=== PATIENT | male | born 1955 | race Caucasian/White ===

== ENCOUNTER 2018-10-23 04:06 | Emergency (ER) | payer OTHER, SELFPAY ==
[2018-10-23 04:10] VITALS: BP 141/86; PULSE 91; RESP 19; O2SAT 97; BMI 39.9
--- NOTE | 2018-10-23 04:19 | ED_ITS ---
HPI - General Adult General Chief complaint: GI Bleed Stated complaint: Rectal bleeding Time Seen by Provider: 10/23/18 04:12 Source: patient Mode of arrival: ambulatory Limitations: no limitations History of Present Illness HPI narrative: 63-year-old male here for evaluation of rectal bleeding. He stated that last night he went to change his underwear noticed a fairly large area bright red blood in the underwear. He had no pain associated with it. He had a bowel movement at approximately 0600 hours last evening without any discomfort without any blood. Had a colonoscopy 2 weeks ago and was diagnosed with a internal hemorrhoid and did have some polyps taken which he states were noncancerous. States that he woke up this morning and again had blood on his underwear. Review of Systems Constitutional Denies headache(s) ENT Ears, Nose, Mouth, and Throat: Denies headache(s) Cardiovascular Denies chest pain and Denies dyspnea Respiratory Denies dyspnea Gastrointestinal Gastrointestinal: Denies abdominal pain, Denies nausea and Denies vomiting Comments: Bright red blood in his underwear Genitourinary Denies dysuria Integumentary/Breasts Denies rash Neurologic Denies headache(s) Hematologic/Lymphatic Denies easy bleeding and Denies easy bruising [facility] Medical History Hypertension (Acute) Social History Smoking Status: Never smoker Social History Smoking Status: Never smoker Exam Initial Vital Signs Initial Vital Signs: Vital Signs Pulse Rate 91 H 10/23/18 04:10 Respiratory Rate 19 10/23/18 04:10 Blood Pressure 141/86 H 10/23/18 04:10 Pulse Oximetry 97 10/23/18 04:10 Const General: cooperative, comfortable, well developed, well groomed and No acute distress Orientation: alert, awake and oriented x3 HENMT Head: normal to inspection and normocephalic Resp Effort & Inspection: normal respiratory effort Cardio Rate: regular rate GI Other: One thrombosed external hemorrhoid that is bleeding Skin Lesions: no lesions Rashes: no rashes Neuro General: alert, awake and oriented x3 Cognition: normal cognition Speech: speech normal Extrem General: normal to inspection and capillary refill normal Psych Appearance: grossly normal and well kempt Course Vital Signs - 8 hr 10/23/18 04:10 Pulse Rate 91 H Respiratory Rate 19 Blood Pressure 141/86 H Pulse Oximetry 97 Medical Decision Making MDM Narrative Medical decision making narrative: Patient with 1 external thrombosed hemorrhoid. I suspect that this is the cause of his symptoms. He was recently had a colonoscopy. It was bright red blood. We did discuss hemorrhoids and treatment for this. We discussed return precautions and follow-up instructions. He expressed understanding and agreement with plan. Discharge Plan Departure Patient Disposition: Home Clinical Impression: Hemorrhoids Qualifiers: Hemorrhoid type: unspecified Qualified Code(s): K64.9 - Unspecified hemorrhoids Instructions: DI for Hemorrhoid Banding Activity Restrictions/Additional Instructions: You can expect some more bleeding over the next couple days. Like we discussed the need to have soft regular bowel movements. Contact your primary doctor for follow-up. Return to the emergency department for any new or worsening symptoms.
[2018-10-23 04:35] VITALS: TEMP 36.8
== END 2018-10-23 04:56 | disposition home or self-care (01) ==
PROVIDERS: Emergency Provider Emergency Medicine
DX: K64.9 Unspecified hemorrhoids (principal)
CPT/HCPCS: 99282

== ENCOUNTER 2019-08-05 13:33 | Emergency (ER) | payer OTHER, SELFPAY ==
[2019-08-05 14:17] VITALS: BP 148/72; PULSE 88; RESP 14; TEMP 36.3; O2SAT 98
--- NOTE | 2019-08-05 15:28 | DI.RAD.S_ITS ---
PROCEDURE: XR LUMBAR SPINE 2-3V INDICATIONS: low back pain TECHNIQUE: 3 views of the lumbar spine were acquired. COMPARISON: None. FINDINGS: Bones: There are 5 lumbar-type vertebral bodies. The lowest intervertebral disk space is designated as L5-S1. The vertebral body heights are well-maintained without evidence to suggest an acute compression fracture. The bone mineralization is within normal limits. Mild degenerative changes of the lower lumbar spine are predominantly evident involving the lower lumbar facet joints present intervertebral disc heights are relatively well-maintained. [id number] degenerative changes of the hips appear to be present (right greater than left), not adequately characterized. Soft tissues: The soft tissues of the imaged abdomen and pelvis are within normal limits. IMPRESSION: Mild degenerative changes of the lower lumbar spine. No acute fractures. Dictated by: Phillip Nobles M.D. on 08/05/2019 at 14:43 Approved by: Phillip Nobles M.D. on 08/05/2019 at 14:45
[2019-08-05] MEDS: CYCLOBENZAPRINE 10 MG TABLET PO (16:26)
[2019-08-05] MEDS: KETOROLAC 60 MG/2 ML VIAL 30 MG IM (16:26)
[2019-08-05] MEDS: LIDOCAINE PATCH 1 EACH ADH..PATCH TOP (16:27)
[2019-08-05 16:58] VITALS: BP 117/85; PULSE 85; RESP 14; O2SAT 96
--- NOTE | 2019-08-05 17:31 | ED.BACK ---
HPI - Back Pain/Injury <FARHAD Fagan - Last Filed: 08/05/19 17:34> General Chief Complaint: Back Pain/Injury Stated Complaint: Stiff Back Time Seen by Provider: 08/05/19 14:58 Source: patient and family Mode of arrival: Ambulatory Limitations: no limitations History of Present Illness HPI Narrative: The patient is a 64-year-old male nonsmoker with history of hypertension who presents with his for chief complaint of a stiff back. He states he started having some lumbar pain on getting dressed this morning. Then it radiated to the left side. He denies any incontinence of bowel, incontinence of bladder saddle anesthesia, numbness tingling or weakness. He has taken aspirin for the pain. He denies any previous injuries of anything similar. He denies any falls or trauma. Denies any fever or personal history of cancer Related Data Previous Rx's Medication Instructions Recorded cyclobenzaprine 10 mg PO TID PRN #20 tab 08/05/19 ketorolac 10 mg PO TID PRN #15 tab 08/05/19 lidocaine 1 patch TOP DAILY PRN #15 each 08/05/19 Allergies Allergy/AdvReac Type Severity Reaction Status Date / Time No Known Drug Allergies Allergy Verified 08/05/19 16:25 Review of Systems <FARHAD Fagan - Last Filed: 08/05/19 17:34> Review of Systems Narrative: GENERAL: Denies chills, fatigue, malaise, fever, sweats. HEENT: Denies sinus pain, ear pain, sore throat, difficulty swallowing, dizziness. RESPIRATORY: Denies dyspnea, cough, wheezing, hemoptysis, sputum. CARDIOVASCULAR: Denies chest pain, palpitations, orthopnea, edema, GASTROINTESTINAL: Denies nausea, vomiting, abdominal pain, diarrhea, constipation, melena. : Denies dysuria, frequency, incontinence, hematuria, urinary retention. MUSCULOSKELETAL: See HPI SKIN: Denies rash, skin lesions, or other NEUROLOGIC: Denies weakness, headache, numbness, change in speech, confusion, seizures, incoordination. PSYCHIATRIC: No concerning psychosocial issues. 12 point review of systems is negative except for those stated above Patient History <FARHAD Fagan - Last Filed: 08/05/19 17:34> Social History Smoking Status: Never smoker Smoking Status: Never smoker alcohol intake frequency: 0-2 drinks per day Substance Use Type: does not use Exam <Ginette WILLIE Love-BC - Last Filed: 08/05/19 17:34> Narrative Exam Narrative: GENERAL: This is a well-nourished, well-developed patient, in no acute distress HEAD: Atraumatic. Normocephalic. No temporal or scalp tenderness. EYES: Pupils equal round and reactive. Extraocular motions intact. No scleral icterus. No injection or drainage. ENT: Nose without bleeding, purulent drainage or septal hematoma. Throat without erythema, tonsillar hypertrophy or exudate. Uvula midline. Airway patent. NECK: Trachea midline. No JVD or lymphadenopathy. Supple, nontender, no meningeal signs. CARDIOVASCULAR: Regular rate and rhythm without murmurs, gallops, or rubs. RESPIRATORY: Clear to auscultation. Breath sounds equal bilaterally. No wheezes, rales, or rhonchi. GASTROINTESTINAL: Abdomen soft, non-tender, nondistended. No hepato-splenomegaly, or palpable masses. No guarding. EXTREMITIES: No clubbing, cyanosis, or edema. No joint tenderness, effusion, or edema noted. BACK: No pain to cervical or thoracic palpation without deformity or crepitance. No flank tenderness. Pain to lumbar spine palpation. Pain to left-sided paraspinal muscle lumbar area. NEURO: AOx3. Stable gait. No gross cranial nerve deficit. Clear speech. Strength is equal upper and lower extremities bilaterally SKIN: No rash or erythema on visible skin Initial Vital Signs Initial Vital Signs: Vital Signs Temperature 97.4 F L 08/05/19 14:17 Pulse Rate 88 08/05/19 14:17 Respiratory Rate 14 08/05/19 14:17 Blood Pressure 148/72 H 08/05/19 14:17 Pulse Oximetry 98 08/05/19 14:17 <Keyanna Umana DO - Last Filed: 08/06/19 08:02> Initial Vital Signs Initial Vital Signs: Vital Signs Temperature 97.4 F L 08/05/19 14:17 Pulse Rate 88 08/05/19 14:17 Respiratory Rate 14 08/05/19 14:17 Blood Pressure 148/72 H 08/05/19 14:17 Pulse Oximetry 98 08/05/19 14:17 Course <JEAN PAUL Fagan - Last Filed: 08/05/19 17:34> Orders Ordered: Discontinued Medications Cyclobenzaprine HCl (Flexeril) 10 mg PO NOW ONE Stop: 08/05/19 15:29 Last Admin: 08/05/19 16:26 Dose: 10 mg Documented by: BRIANNE Ketorolac Tromethamine (Toradol) 30 mg IM NOW ONE Stop: 08/05/19 15:29 Last Admin: 08/05/19 16:26 Dose: 30 mg Documented by: BRIANNE Lidocaine (Lidoderm) 1 each TOP NOW ONE Stop: 08/05/19 15:29 Last Admin: 08/05/19 16:27 Dose: 1 each Documented by: BRIANNE Vital Signs Vital signs: Vital Signs - 8 hr 08/05/19 14:17 08/05/19 16:58 Temperature 97.4 F L Pulse Rate 88 85 Respiratory Rate 14 14 Blood Pressure 148/72 H Blood Pressure [Left Arm] 117/85 Pulse Oximetry 98 96 <Keyanna Umana DO - Last Filed: 08/06/19 08:02> Orders Ordered: Discontinued Medications Cyclobenzaprine HCl (Flexeril) 10 mg PO NOW ONE Stop: 08/05/19 15:29 Last Admin: 08/05/19 16:26 Dose: 10 mg Documented by: BRIANNE Ketorolac Tromethamine (Toradol) 30 mg IM NOW ONE Stop: 08/05/19 15:29 Last Admin: 08/05/19 16:26 Dose: 30 mg Documented by: BRIANNE Lidocaine (Lidoderm) 1 each TOP NOW ONE Stop: 08/05/19 15:29 Last Admin: 08/05/19 16:27 Dose: 1 each Documented by: BRIANNE Vital Signs Vital signs: Vital Signs - 8 hr 08/05/19 14:17 08/05/19 16:58 Temperature 97.4 F L Pulse Rate 88 85 Respiratory Rate 14 14 Blood Pressure 148/72 H Blood Pressure [Left Arm] 117/85 Pulse Oximetry 98 96 MDM - Back Pain/Injury <JEAN PAUL Fagan - Last Filed: 08/05/19 17:34> Imaging Data Lumbar x-ray: Radiologist's Impression: [address] [place] [id number] XRay Report Signed Patient: Nishant Castro MMR#: [id number] : 7Acct:[id number] Age/Sex: 64 / MDate of Service: 08/05/19 Loc: ED Accession Number: [id number] Procedure: XR lumbar spine 2-3V Ordering Provider: Ginette LoveP-RADHA PROCEDURE: XR LUMBAR SPINE 2-3V INDICATIONS: low back pain TECHNIQUE: 3 views of the lumbar spine were acquired. COMPARISON: None. FINDINGS: Bones: There are 5 lumbar-type vertebral bodies. The lowest intervertebral disk space is designated as L5-S1. The vertebral body heights are well-maintained without evidence to suggest an acute compression fracture. The bone mineralization is within normal limits. Mild degenerative changes of the lower lumbar spine are predominantly evident involving the lower lumbar facet joints present intervertebral disc heights are relatively well-maintained. [id number] degenerative changes of the hips appear to be present (right greater than left), not adequately characterized. Soft tissues: The soft tissues of the imaged abdomen and pelvis are within normal limits. IMPRESSION: Mild degenerative changes of the lower lumbar spine. No acute fractures. Dictated by: Phillip Nobles M.D. on 08/05/2019 at 14:43 Approved by: Phillip Nobles M.D. on 08/05/2019 at 14:45 MDM Narrative Medical decision making narrative: The patient is a 64-year-old male who presents with a chief complaint of lumbar pain after getting dressed today. He feels much better with the above-stated therapies. X-ray shows no acute findings. Patient does not have any red flag symptoms of incontinence bowel, incontinence of bladder saddle anesthesia and states understanding that these are return precautions. Encourage PCP follow-up in the next few days. Discussed at length coming back to ER for acute concerns. Patient have no questions or concerns upon discharge and state understanding of return precautions as well as follow-up care. Discharge Plan Departure Patient Disposition: Home Clinical Impression: Strain of lumbar region Qualifiers: Encounter type: initial encounter Qualified Code(s): S39.012A - Strain of muscle, fascia and tendon of lower back, initial encounter Acute back pain Qualifiers: Back pain location: low back pain Back pain laterality: left Sciatica presence: without sciatica Qualified Code(s): M54.5 - Low back pain Discharge Date/Time: 08/05/19 17:03 Instructions: DI for Low Back Pain, DI for Back Spasm, DI for Back Strain or Sprain Activity Restrictions/Additional Instructions: I have sent [address] [facility] Please follow-up with primary care provider in the next few days. Your x-rays here show no acute findings. As I discussed, your x-ray shows no acute fracture. This does not rule out a soft tissue injury such as a ligament or tendon injury. It is important that you follow up with primary care provider, especially if worsening or no improvement. There can be fractures that did not show up on initial x-ray. Please be aware that the cyclobenzaprine can be sedating. Do not take and drive. Do not combine with any other sedating agents. I have given you a prescription of Toradol. This is an NSAID. Do not combine it with other NSAIDs such as Aleve or ibuprofen. I suggest taking it with some food, as it can irritate your stomach. Please come back to the emergency department for any acute concerns such as incontinence bowel incontinence of bladder or numbness in your groin Prescriptions: New ketorolac 10 mg tablet 10 mg PO TID PRN (Reason: pain) Qty: 15 RF: 0 lidocaine 5 % adhesive patch,medicated 1 patch TOP DAILY PRN (Reason: pain) Qty: 15 RF: 0 cyclobenzaprine 10 mg tablet 10 mg PO TID PRN (Reason: muscle spasm) Qty: 20 RF: 0 Referrals: Mari Gong ARNP [Primary Care Provider] -
== END 2019-08-05 17:03 | disposition home or self-care (01) ==
PROVIDERS: Emergency Provider Nurse Practitioner Family; PCP Nurse Practitioner
DX: S39.012A Strain of muscle, fascia and tendon of lower back, initial encounter (principal)
CPT/HCPCS: 72100; 96372; 99283; J1885